=== PATIENT | female | born 1950 | race Hispanic/Latino ===

== ENCOUNTER 2017-11-13 15:38 | Emergency (ER) | payer BC ==
[2017-11-13 15:38] VITALS: BMI 30.9
--- NOTE | 2017-11-13 16:36 | ED PDOC ---
Arrival/HPI <Hitesh Sandhu - Last Filed: 11/13/17 17:41> - History of Present Illness Symptom Onset: Sudden Symptom Course: Improving Activities at Onset: Light Context: Other (dentist) <Susan Spaulding - Last Filed: 11/15/17 22:26> - General Chief Complaint: GI Problem Time Seen by Provider: 11/13/17 16:10 - History of Present Illness Narrative History of Present Illness (Text): 11/13/17 16:32 This is a 66 year old female with PMH of left breast cancer s/p lumpectomy and uterine cancer presenting the ED for nausea and vomiting at the dentist office today. Patient states she was getting a deep gum cleansing procedure at the dentist office today and swallowed some of the solution before subsequently vomiting x3. Vomit is described as non bilious and non bloody and mostly fluid. Patient denies CP, SOB, abdominal pain, urinary symptoms, headaches, fevers, chills, recent travel, sick contacts at home and recent sickness. Patient takes no medications except for vitamins. PMD is Dr. Bashir (Susan Spaulding) Past Medical History - Provider Review Nursing Documentation Reviewed: Yes - Infectious Disease Hx of Infectious Diseases: None - Tetanus Immunization Tetanus Immunization: Up to Date - Reproductive Menopause: Yes - Cardiac Hx Cardiac Disorders: No - HEENT Other/Comment: detached retina - Musculoskeletal/Rheumatological Hx Falls: Yes - Gastrointestinal Hx Gastrointestinal Disorders: No - Genitourinary/Gynecological Hx Uterine Cancer: Yes Other/Comment: breast ca - Psychiatric Hx Substance Use: No - Surgical History Other/Comment: left lumpectomy, DnC, detached retnia - Anesthesia Hx Anesthesia: Yes Hx Anesthesia Reactions: No - Suicidal Assessment Feels Threatened In Home Enviroment: No <Susan Spaulding - Last Filed: 11/15/17 22:26> Family/Social History - Physician Review Nursing Documentation Reviewed: Yes Family/Social History: Unknown Family HX Smoking Status: Never Smoked Hx Alcohol Use: Yes (wine) Hx Substance Use: No Hx Substance Use Treatment: No <Susan Spaulding - Last Filed: 11/15/17 22:26> Allergies/Home Meds <Hitesh Sandhu - Last Filed: 11/13/17 17:41> <Susan Spaulding - Last Filed: 11/15/17 22:26> Allergies/Adverse Reactions: Allergies Penicillins Allergy (Verified 11/13/17 15:58) RASH Home Medications: Home Meds Medication Instructions Recorded Confirmed Brimonidine Tartrate/Timolol 1 drop OP BID 05/18/14 05/18/14 [Combigan 0.2%-0.5% 5 ml] Latanoprost 0.005% Opht [XALATAN 1 drp OP HS 05/18/14 05/18/14 2.5 Ml] Review of Systems - Physician Review All systems were reviewed & negative as marked: Yes - Review of Systems Constitutional: Normal. absent: Fevers Eyes: Normal ENT: Normal Respiratory: Normal. absent: SOB Cardiovascular: Normal. absent: Chest Pain Gastrointestinal: Nausea, Vomiting. absent: Abdominal Pain, Diarrhea, Hematochezia, Hematemesis Genitourinary Female: Normal Musculoskeletal: Normal Skin: Normal Neurological: Normal. absent: Headache <[facility] CenterFrances - Last Filed: 11/15/17 22:26> Physical Exam Vital Signs Reviewed: Yes Temperature: Afebrile Blood Pressure: Hypertensive Pulse: Regular Respiratory Rate: Normal Appearance: Positive for: Well-Appearing, Non-Toxic, Comfortable Pain Distress: None Mental Status: Positive for: Alert and Oriented X 3 - Systems Exam Head: Present: Atraumatic, Normocephalic Pupils: Present: PERRL Extroacular Muscles: Present: EOMI Conjunctiva: Present: Normal Mouth: Present: Moist Mucous Membranes Neck: Present: Normal Range of Motion Respiratory/Chest: Present: Clear to Auscultation, Good Air Exchange. No: Respiratory Distress, Accessory Muscle Use Cardiovascular: Present: Regular Rate and Rhythm, Normal S1, S2. No: Murmurs Abdomen: Present: Normal Bowel Sounds. No: Tenderness, Distention, Peritoneal Signs, Rebound, Guarding, McBurney's Point Tender Back: Present: Normal Inspection Upper Extremity: Present: Normal Inspection. No: Cyanosis, Edema Lower Extremity: Present: Normal Inspection. No: Edema Neurological: Present: Speech Normal, Motor Func Grossly Intact, Normal Sensory Function Skin: Present: Warm, Dry, Normal Color. No: Rashes Psychiatric: Present: Alert, Oriented x 3, Normal Insight, Normal Concentration <Susan Spaulding - Last Filed: 11/15/17 22:26> Vital Signs Temp Pulse Resp BP Pulse Ox 11/13/17 17:46 97.7 F 70 19 139/87 96 11/13/17 17:45 97.7 F 70 19 139/87 96 11/13/17 15:42 98.1 F 103 H 18 165/94 H 97 Medical Decision Making - EKG Interpretation Interpreted by ED Physician: Yes <Hitesh Sandhu - Last Filed: 11/13/17 17:41> <Susan Spaulding - Last Filed: 11/15/17 22:26> ED Course and Treatment: 11/13/17 17:05 patient seen and examined by myself, patient presents to the ED for eval of acute vomiting after cleansing procedure at dentist office. event occurred after patient swallowed liquid. patient only reports nausea at this time. no chest discomfort, no no dyspnea, no abd pain, no headache, no lightheadedness, no vertigo. Patient appears well, will clinically observe after dose of zofran. 11/13/17 17:41 patient feels much better and ready to go home (Hitesh Sandhu) 11/13/17 16:38 Impression: This is a 66 year old female with PMH of left breast cancer s/p lumpectomy and uterine cancer presenting the ED for nausea and vomiting at the dentist office today. Differential not limited to: Benign vomiting vs gastritis vs gastroenteritis vs reflux Plan: Likely vomiting due to swallowing of fluid at dentist office. Will reassess after zofran. Progress: 11/13/17 16:39 EKG: Normal sinus rhythm, no ST abnormalities present. 11/13/17 16:44 Patient resting comfortably in bed, normal vitals, afebrile, and nausea is improving. (Susan Spaulding) - EKG Interpretation EKG Interpretation (Text): 11/13/17 17:07 1552: sinsu rhythm at 85 bpm, nml qrs, nml axis, no acute sttw abn (Hitesh Sandhu) - Medication Orders Current Medication Orders: Discontinued Medications Ondansetron HCl (Zofran Tab) 4 mg PO STAT STA Stop: 11/13/17 16:32 Last Admin: 11/13/17 16:55 Dose: 4 mg - PA / DRYER OPERATOR / Resident Statement / has reviewed & agrees with the documentation as recorded. / has examined the patient and agrees with the treatment plan. <Susan Spaulding - Last Filed: 11/15/17 22:26> Disposition/Present on Arrival - Present on Arrival Any Indicators Present on Arrival: No - Disposition Have Diagnosis and Disposition been Completed?: Yes Disposition Time: 17:41 Patient Plan: Discharge <Hitesh Sandhu - Last Filed: 11/13/17 17:41> - Present on Arrival Any Indicators Present on Arrival: No History of DVT/PE: No History of Uncontrolled Diabetes: No Urinary Catheter: No History of Decub. Ulcer: No History Surgical Site Infection Following: None - Disposition Have Diagnosis and Disposition been Completed?: Yes Patient Plan: Discharge <Susan Spaulding - Last Filed: 11/15/17 22:26> - Disposition Diagnosis: Acute vomiting Disposition: HOME/ ROUTINE Condition: IMPROVED Discharge Instructions (ExitCare): Nausea and Vomiting, Adult (DC) Print Language: HEBREW Additional Instructions: return for any new or worsening symptoms especially chest pain or discomfort, shortness of breath. follow up with your primary care doctor for further evaluation and better control of your blood pressure. Referrals: Anahi Bashir DO [Primary Care Provider] - Follow up with primary Forms: [employer] (Beninese)
[2017-11-13 17:45] VITALS: BP 139/87; PULSE 70; RESP 19; TEMP 97.7; O2SAT 96
--- NOTE | 2017-11-14 09:34 | CARD ---
APPROVED REPORT Date of service: 11/13/2017 EKG Measurement Heart [id number] <Conclusion> Normal sinus rhythm Normal ECG
== END 2017-11-13 17:46 | disposition home or self-care (01) ==
LOC: ED 15:38
DX: R11.10 Vomiting, unspecified (principal)